=== PATIENT | male | born 1975 | race Caucasian/White ===

== ENCOUNTER 2023-01-21 04:22 | Day surgery (SDC) | payer OTHER ==
[2023-01-20 08:29] VITALS: BMI 27.8
[2023-01-21 10:27] VITALS: TEMP 98.6
[2023-01-21 11:00] VITALS: BP 125/92; PULSE 67; RESP 14
== END 2023-01-21 11:01 | disposition home or self-care (01) ==
LOC: JASU-ENDO 04:22
PROVIDERS: ATTEND Internal Medicine Gastroenterology
PROC: 0DBH8ZX Excision of Cecum, Via Natural or Artificial Opening Endoscopic, Diagnostic (ICD-10-PCS; principal; 2023-01-21 10:00)
DX: Z12.11 Encounter for screening for malignant neoplasm of colon (principal); D12.0 Benign neoplasm of cecum; K64.8 Other hemorrhoids
CPT/HCPCS: 88305-TC